=== PATIENT | male | born 1935 | race Caucasian/White ===

== ENCOUNTER → 2025-05-01 | Outpatient (CLI) | payer MEDICARE, OTHER, SELFPAY ==
--- NOTE | 2025-05-01 | XR_ITS ---
EXAMINATION: Bilateral knees single view TECHNIQUE: Bilateral PA knee standing tunnel view single view Date and time: May 01, 2025, 1241 hours INDICATIONS: Left knee pain beginning 3 weeks ago. FINDINGS: Moderate narrowing medial joint spaces bilaterally Meniscus calcification. Moderate osteopenia IMPRESSION: Moderate narrowing medial joint spaces bilaterally
--- NOTE | 2025-05-01 | XR_ITS ---
EXAMINATION: Left knee 4 views TECHNIQUE: AP oblique lateral axial left knee 4 views Date and time: May 01, 2025, 1245 hours INDICATIONS: Left knee pain beginning 2 weeks ago FINDINGS: Prominent osteopenia Mild to moderate tricompartment osteoarthritis most prominent medial and patellofemoral joints Meniscus calcification No fracture or patellar dislocation IMPRESSION: Mild to moderate tricompartment osteoarthritis
== END | disposition home or self-care (01) ==
PROVIDERS: PCP Internal Medicine; Referring Provider Orthopaedic Surgery; Visit Provider Orthopaedic Surgery
DX: M25.862 Other specified joint disorders, left knee (principal); M25.861 Other specified joint disorders, right knee; M17.12 Unilateral primary osteoarthritis, left knee
CPT/HCPCS: 73560; 73564; 73565